=== PATIENT | female | born 1955 | race Caucasian/White ===

== ENCOUNTER 2018-02-05 20:05 | Emergency (ER) | payer OTHER ==
[~2018-02-05] VITALS: Ht 175.3 cm; Wt 81.6 kg
[~2018-02-05 20:05] MED LIST: NEXIUM40 MG PO
[2018-02-05 21:50] VITALS: BP 142/86
== END 2018-02-05 22:12 | disposition home or self-care (01) ==
LOC: ER 20:05
DX: F41.9 Anxiety disorder, unspecified (principal)
CPT/HCPCS: 93005; 99282